=== PATIENT | female | born 1995 | race Caucasian/White ===

== ENCOUNTER 2016-05-22 20:37 | Emergency (ER) | payer MEDICAID ==
[~2016-05-22] VITALS: Ht 175.3 cm; Wt 102.0 kg
[~2016-05-22 20:37] MED LIST: ALBU17I INH; ALBU2.5I INH; FLOV110A INH; MACR100C PO; MEDR4PAK3 PO; Nebulizer machine; VENTAER INH; ZYRT10TA12 PO; [UNRECOGNIZED DRUG - SUPPLY]
[2016-05-22 20:40] VITALS: BP 161/113; PULSE 97; RESP 16; TEMP 98; O2SAT 98
[2016-05-22 22:30] VITALS: BP 168/100; PULSE 89; RESP 14; O2SAT 99
[2016-05-22] MEDS ORDERED: VENTAER INH (22:37)
[2016-05-22] MEDS ORDERED: ALBU.5I NEB (22:38)
[2016-05-22] MEDS ORDERED: MORPHINE SULFATE 4 MG/ML INJ IV PUSH ONE (23:15)
[2016-05-22] MEDS ORDERED: SODIUM CHLORID 0.9% 500 ML INJ 500 ML IV ONE (23:15)
[2016-05-22] MEDS ORDERED: SODIUM CHLORIDE 0.9% FLUSH 5 ML FLUSH IVF PRN (23:15)
[2016-05-22] MEDS ORDERED: ONDANSETRON HCL 4 MG/2 ML VIAL IV PUSH ONE (23:15)
--- NOTE | 2016-05-22 23:24 | PD ---
HPI Chief Complaint: Injury Time Seen by Provider: 22:59 Travel History International Travel<30 days: No Contact w/Intl Traveler<30days: No Traveled to known affect area: No History of Present Illness HPI The patient is a 20-year-old female who presents to the emergency department for bilateral arm pain, chest pain, and back pain. The patient states her symptoms started yesterday when she tried plugging in her [place] the outlet. The patient was using her right hand, is right-hand dominant, when she felt a "shock". The patient states she jumped back from the wall because she was scared, however, was not thrown across the room. She denied any burn harper to the right hand. Patient states earlier today she developed left arm pain that radiates to the chest and down the right arm as well as to the upper back. The pain is sharp, improved with massage at home, and possibly exacerbated by being electrocuted while plugging in a fan. The patient denies any shortness of breath, nausea, vomiting, abdominal pain, or visible romero. PFSH Past Medical History Asthma: Yes Developmental Delay: No Diminished Hearing: No GERD: Yes Hypertension: Yes Respiratory: Yes (ASTHMA) Immunizations Current: Yes Influenza Vaccination: No ?: Not LMP: 2 WKS AGO : 1 Para: 1 Past Surgical History Surgical History: No Previous Surgery Social History Alcohol Use: No Tobacco Use: No Substance Use: No Allergies-Medications (Allergen,Severity, Reaction): Coded Allergies: No Known Allergies (Verified , 05/22/16) Reported Meds & Prescriptions Reported Meds & Active Scripts Active Reported Albuterol Neb (Albuterol Sulfate) 2.5 Mg/0.5 Ml Neb 2.5 Mg NEB ONCE Note: The Albuterol Sulfate Inhalation Solution is concentrated and must be diluted. Read complete instructions carefully before using. Ventolin Hfa 18 GM Inh (Albuterol Sulfate) 90 Mcg/Act Aer 2 Puff INH Q4-6H PRN Review of Systems Except as stated in HPI: all other systems reviewed are Neg General / Constitutional: No: Fever HENT: Positive: Neck Pain, No: Lightheadedness Cardiovascular: Positive: Chest Pain or Discomfort Respiratory: No: Shortness of Breath Gastrointestinal: No: Nausea, Vomiting, Abdominal Pain Musculoskeletal: Positive: Pain Skin: No Other (denies any romero) Neurologic: No: Paresthesia, Sensory Disturbance Physical Exam Narrative GENERAL: Awake, alert, pleasant 20-year-old female who appears her stated age and is in no acute respiratory distress. SKIN: Warm and dry. No visible romero on the right hand, right upper extremity, or left upper extremity. Multiple tattoos noted. Multicolored hair. HEAD: Atraumatic. Normocephalic. EYES: No injection or drainage.. ENT: No nasal bleeding or discharge. Mucous membranes pink and moist. NECK: Trachea midline. No JVD. CARDIOVASCULAR: Regular rate and rhythm. No murmur appreciated. No tenderness to palpation of the sternal border. RESPIRATORY: No accessory muscle use. Clear to auscultation. Breath sounds equal bilaterally. MUSCULOSKELETAL: No obvious deformities. No clubbing. No cyanosis. No edema. NEUROLOGICAL: Awake and alert. No obvious cranial nerve deficits. Motor grossly within normal limits. Normal speech. PSYCHIATRIC: Appropriate mood and affect; insight and judgment normal. Data Data Last Documented VS Vital Signs Date Time Temp Pulse Resp B/P Pulse Ox O2 Delivery O2 Flow Rate FiO2 05/22/16 22:32 90 05/22/16 20:40 98.0 16 161/113 98 Room Air Orders Electrocardiogram (05/22/16 20:50) Ckmb (Isoenzyme) Profile (05/22/16 23:05) Complete Blood Count With Diff (05/22/16 23:05) Comprehensive Metabolic Panel (05/22/16 23:05) Troponin I (05/22/16 23:05) Ecg Monitoring (05/22/16 23:05) Iv Access Insert/Monitor (05/22/16 23:05) Oximetry (05/22/16 23:05) Oxygen Administration (05/22/16 23:05) Morphine Inj (Morphine Inj) (05/22/16 23:15) Sodium Chloride 0.9% Flush (Ns Flush) (05/22/16 23:15) Sodium Chlorid 0.9% 500 Ml Inj (Ns 500 M (05/22/16 23:15) Ondansetron Inj (Zofran Inj) (05/22/16 23:15) Labs Laboratory Tests Test 05/22/16 23:10 White Blood Count 6.5 TH/MM3 Red Blood Count 5.25 MIL/MM3 Hemoglobin 14.2 GM/DL Hematocrit 40.6 % Mean Corpuscular Volume 77.3 FL Mean Corpuscular Hemoglobin 27.1 PG Mean Corpuscular Hemoglobin 35.0 % Concent Red Cell Distribution Width 13.8 % Platelet Count 176 TH/MM3 Mean Platelet Volume 8.6 FL Neutrophils (%) (Auto) 48.8 % Lymphocytes (%) (Auto) 34.8 % Monocytes (%) (Auto) 9.5 % Eosinophils (%) (Auto) 6.0 % Basophils (%) (Auto) 0.9 % Neutrophils # (Auto) 3.2 TH/MM3 Lymphocytes # (Auto) 2.3 TH/MM3 Monocytes # (Auto) 0.6 TH/MM3 Eosinophils # (Auto) 0.4 TH/MM3 Basophils # (Auto) 0.1 TH/MM3 CBC Comment DIFF FINAL Differential Comment Sodium Level 139 MEQ/L Potassium Level 3.3 MEQ/L Chloride Level 103 MEQ/L Carbon Dioxide Level 27.3 MEQ/L Anion Gap 9 MEQ/L Blood Urea Nitrogen 8 MG/DL Creatinine 0.94 MG/DL Estimat Glomerular Filtration 74 ML/MIN Rate Random Glucose 78 MG/DL Calcium Level 8.6 MG/DL Total Bilirubin 0.8 MG/DL Aspartate Amino Transf 61 U/L (AST/SGOT) Alanine Aminotransferase 72 U/L (ALT/SGPT) Alkaline Phosphatase 113 U/L Total Creatine Kinase 94 U/L Troponin I 0.10 NG/ML Total Protein 7.9 GM/DL Albumin 3.9 GM/DL MDM Medical Decision Making Medical Screen Exam Complete: Yes Emergency Medical Condition: Yes Medical Record Reviewed: Yes Interpretation(s) EKG reveals normal sinus rhythm with a rate of 82. No ischemic changes or ectopy noted. Laboratory Tests Test 05/22/16 23:10 White Blood Count 6.5 TH/MM3 Red Blood Count 5.25 MIL/MM3 Hemoglobin 14.2 GM/DL Hematocrit 40.6 % Mean Corpuscular Volume 77.3 FL Mean Corpuscular Hemoglobin 27.1 PG Mean Corpuscular Hemoglobin 35.0 % Concent Red Cell Distribution Width 13.8 % Platelet Count 176 TH/MM3 Mean Platelet Volume 8.6 FL Neutrophils (%) (Auto) 48.8 % Lymphocytes (%) (Auto) 34.8 % Monocytes (%) (Auto) 9.5 % Eosinophils (%) (Auto) 6.0 % Basophils (%) (Auto) 0.9 % Neutrophils # (Auto) 3.2 TH/MM3 Lymphocytes # (Auto) 2.3 TH/MM3 Monocytes # (Auto) 0.6 TH/MM3 Eosinophils # (Auto) 0.4 TH/MM3 Basophils # (Auto) 0.1 TH/MM3 CBC Comment DIFF FINAL Differential Comment Sodium Level 139 MEQ/L Potassium Level 3.3 MEQ/L Chloride Level 103 MEQ/L Carbon Dioxide Level 27.3 MEQ/L Anion Gap 9 MEQ/L Blood Urea Nitrogen 8 MG/DL Creatinine 0.94 MG/DL Estimat Glomerular Filtration 74 ML/MIN Rate Random Glucose 78 MG/DL Calcium Level 8.6 MG/DL Total Bilirubin 0.8 MG/DL Aspartate Amino Transf 61 U/L (AST/SGOT) Alanine Aminotransferase 72 U/L (ALT/SGPT) Alkaline Phosphatase 113 U/L Total Creatine Kinase 94 U/L Troponin I 0.10 NG/ML Total Protein 7.9 GM/DL Albumin 3.9 GM/DL Differential Diagnosis Differential diagnosis includes electrocution, rhabdomyolysis, acute renal failure, neuropathy, radiculopathy, anxiety. Narrative Course IV was established, labs are drawn and sent, and the patient was placed on cardiac telemetry monitoring and continuous pulse oximetry monitoring. EKG was ordered and interpreted. CPK and BUN/creatinine were sent to lab. The patient was administered morphine, Zofran, and IV fluids for her symptoms. The patient' s EKG reveals sinus rhythm with no obvious ischemic changes or ectopy. Heart rate was within normal limits, slightly on the upper end in the 90s, but the patient was not hypoxic. However, troponin was elevated at 1.10, unsure if this is related to underlying electrocution with pericardial injury/cardial injury versus possible PE. I had a discussion with the patient regarding the need to perform imaging for possible pulmonary embolism and admission for serial cardiac enzymes and further evaluation by cardiology. However, the patient states she has a young child at home and does not want to stay in the hospital. I discussed the risk and benefits of leaving against medical support assistant, the patient is alert, oriented, and able to make a reasonable decision. The patient has signed out AGAINST MEDICAL ADVICE. The patient was administered aspirin prior to discharge. Patient is advised to return immediately if possible. Procedures Procedure Narrative AMA: The risks of leaving against medical advice without further evaluation treatment were discussed with the patient. These risks include cardiac dysfunction, cardiac dysrhythmia, possible heart attack, possible stroke or . The patient indicated understanding of these risks and appeared to have the capacity to make this decision. Diagnosis Primary Impression: Chest pain Qualified Code: R07.9 - Chest pain, unspecified type Additional Impression: Elevated troponin Disposition: 07 AGAINST MEDICAL ADVICE Condition: Stable Shaji Martines MD May 22, 2016 23:24
[2016-05-22 23:45] VITALS: BP 152/98; PULSE 95; RESP 16; O2SAT 100
[2016-05-23 00:01] LABS: AUTOMATED NEUTROPHIL # 3.2 TH/MM3 (1.8-7.7); BASOPHIL # 0.1 TH/MM3 (0-0.2); BASOPHIL % 0.9 % (0.0-2.0); EOSINOPHIL # 0.4 TH/MM3 (0-0.4); HEMATOCRIT 40.6 % (35.0-46.0); HEMO FLAGS DIFF FINAL; LYMPH % 34.8 % (9.0-44.0); LYMPHOCYTE # 2.3 TH/MM3 (1.0-4.8); MEAN CELL VOLUME 77.3 FL (80.0-100.0); MEAN CORPUSCULAR HEMOGLOBIN 27.1 PG (27.0-34.0); MONO % 9.5 % (0.0-8.0); NEUT % 48.8 % (16.0-70.0); PLATELET COUNT 176 TH/MM3 (150-450); RED BLOOD COUNT 5.25 MIL/MM3 (4.00-5.30); RED CELL DISTRIBUTION WIDTH 13.8 % (11.6-17.2); WHITE BLOOD COUNT 6.5 TH/MM3 (4.0-11.0)
[2016-05-23 00:37] LABS: ALKALINE PHOSPHATASE 113 U/L (45-117); ALT (GPT) 72 U/L (10-53); ANION GAP 9 MEQ/L (5-15); AST (GOT) 61 U/L (15-37); BICARBONATE 27.3 MEQ/L (21.0-32.0); BLOOD UREA NITROGEN 8 MG/DL (7-18); CHLORIDE 103 MEQ/L (98-107); GLOMERULAR FILTRATION RATE 74 ML/MIN (>89); POTASSIUM 3.3 MEQ/L (3.5-5.1); SODIUM (NA) 139 MEQ/L (136-145); TOTAL BILIRUBIN ADULT 0.8 MG/DL (0.2-1.0)
[2016-05-23 00:38] LABS: CREATINE KINASE 94 U/L (26-192)
[2016-05-23 00:51] VITALS: BP 158/94; PULSE 92; RESP 14; O2SAT 99
[2016-05-23] MEDS ORDERED: ASPIRIN 81 MG CHEW TAB CHEW ONE (01:00)
--- NOTE | 2016-05-23 16:53 | EKG ---
Date Performed: 05/22/2016 Time Performed: 20:58:32 PTAGE: 20 years EKG: Sinus rhythm NORMAL ECG NO PREVIOUS TRACING DOCTOR: Odell Dangelo Interpretating Date/Time 05/23/2016 16:52:42
== END 2016-05-23 01:02 | disposition left against medical advice (07) ==
LOC: NEPA 20:37
DX: R07.9 Chest pain, unspecified (principal); R74.8 Abnormal levels of other serum enzymes; I10 Essential (primary) hypertension
CPT/HCPCS: 80053; 82550; 84484; 85025; 93005; 96361; 96374; 96375; 99285; J2270; J2405; J7040

== ENCOUNTER 2016-08-06 17:24 | Emergency (ER) | payer MEDICAID ==
[~2016-08-06] VITALS: Ht 177.8 cm; Wt 105.0 kg
[~2016-08-06 17:24] MED LIST changes: +ALBU.5I NEB; -ALBU17I INH; -ALBU2.5I INH; -FLOV110A INH; -MACR100C PO; -MEDR4PAK3 PO; -Nebulizer machine; -ZYRT10TA12 PO; -[UNRECOGNIZED DRUG - SUPPLY]
[2016-08-06 17:25] VITALS: BP 173/95; PULSE 89; RESP 18; TEMP 97.9; O2SAT 99
[2016-08-06] MEDS ORDERED: SODIUM CHLOR 0.9% 1000 ML INJ 1,000 ML IV ONE (19:16)
--- NOTE | 2016-08-06 19:19 | PD ---
HPI Chief Complaint: Headache Time Seen by Provider: 19:08 Travel History International Travel<30 days: No Contact w/Intl Traveler<30days: No Traveled to known affect area: No History of Present Illness HPI This patient was examined in the presence of a female nurse. 20-year-old female with no significant past medical history presents for evaluation of a headache. Symptom onset 3 days ago. Since that has gradually worsened. Currently rates the pain as a 5 out of 10. She describes it as a generalized pressure which is constant, no alleviating factors. She denies any associated symptoms such as blurred vision, nausea or vomiting, dizziness, lightheadedness, weakness in the extremities. She reports that she occasionally gets headaches primarily in the frontal region but not on a regular basis. She took some aspirin at home but the headache persists which prompted evaluation. No history of migraines. Last menstrual period 1-2 weeks ago. No other complaints at this time. PFSH Past Medical History Asthma: Yes Developmental Delay: No Diminished Hearing: No GERD: Yes Hypertension: Yes Respiratory: Yes (ASTHMA) Immunizations Current: Yes Tetanus Vaccination: < 5 Years Influenza Vaccination: No ?: Not LMP: 08/02/16 : 1 Para: 1 Past Surgical History Surgical History: No Previous Surgery Social History Alcohol Use: No Tobacco Use: No Substance Use: No Allergies-Medications (Allergen,Severity, Reaction): Coded Allergies: No Known Allergies (Verified , 08/06/16) Reported Meds & Prescriptions Reported Meds & Active Scripts Active Reported [Blood Pressure] Albuterol Neb (Albuterol Sulfate) 2.5 Mg/0.5 Ml Neb 2.5 Mg NEB ONCE Note: The Albuterol Sulfate Inhalation Solution is concentrated and must be diluted. Read complete instructions carefully before using. Ventolin Hfa 18 GM Inh (Albuterol Sulfate) 90 Mcg/Act Aer 2 Puff INH Q4-6H PRN Review of Systems Except as stated in HPI: all other systems reviewed are Neg Physical Exam Narrative GENERAL: Well-nourished female in no acute distress SKIN: Warm and dry. HEAD: Atraumatic. Normocephalic. EYES: Pupils equal and round. No scleral icterus. No injection or drainage. ENT: No nasal bleeding or discharge. Mucous membranes pink and moist. NECK: Trachea midline. No JVD. CARDIOVASCULAR: Regular rate and rhythm. No murmur appreciated. RESPIRATORY: No accessory muscle use. Clear to auscultation. Breath sounds equal bilaterally. GASTROINTESTINAL: Abdomen soft, non-tender, nondistended. Hepatic and splenic margins not palpable. MUSCULOSKELETAL: No obvious deformities. No clubbing. No cyanosis. No edema. NEUROLOGICAL: Awake and alert. No obvious cranial nerve deficits. Motor grossly within normal limits. Normal speech. PSYCHIATRIC: Appropriate mood and affect; insight and judgment normal. Data Data Last Documented VS Vital Signs Date Time Temp Pulse Resp B/P Pulse Ox O2 Delivery O2 Flow Rate FiO2 08/06/16 19:55 87 18 165/89 100 Room Air 08/06/16 19:24 98.1 Orders Iv Access Insert/Monitor (08/06/16 19:16) Ketorolac Inj (Toradol Inj) (08/06/16 19:30) Diphenhydramine Inj (Benadryl Inj) (08/06/16 19:30) Metoclopramide Inj (Reglan Inj) (08/06/16 19:30) Sodium Chlor 0.9% 1000 Ml Inj (Ns 1000 M (08/06/16 19:16) MDM Medical Decision Making Medical Screen Exam Complete: Yes Emergency Medical Condition: Yes Medical Record Reviewed: Yes Differential Diagnosis Migraine, tension headache, cluster headache, mass, pseudotumor cerebri, temporal arteritis, sinusitis, occipital neuralgia, subarachnoid hemorrhage, hypertensive emergency Narrative Course 20-year-old female with gradual onset 3 day history of headache. Currently rates it as a 5 out of 10. She has no additional symptoms. She has a grossly nonfocal neurologic examination and she appears well. I suspect a benign headache. She will be treated symptomatically. Her blood pressure was elevated and she does endorse a history of hypertension, she is currently on 1 hypertensive medication that she does not remember the name of. She is encouraged to keep a journal of her blood pressure readings and to follow up with a primary care physician for further management and evaluation of blood pressure journal readings. She is agreeable with this plan. After the administration of 1 L IV fluids, IV Benadryl, IV Reglan and Toradol she was reexamined. The patient reports significant improvement, near resolution of her headache. She is stable for discharge. Diagnosis Primary Impression: Headache Qualified Code: R51 - Acute nonintractable headache, unspecified headache type Additional Instructions: Stay well-hydrated and well-nourished. As discussed, monitor your blood pressure at a regular basis and keep a journal of the readings. Follow-up with primary care physician to discuss. Return for any emergent medical conditions Med/Other Pt SpecificInfo: No Change to Meds Disposition: 01 DISCHARGE HOME Condition: Stable Saeid Vivar August 06, 2016 19:18
[2016-08-06 19:24] VITALS: BP 165/104; PULSE 98; RESP 18; TEMP 98.1; O2SAT 97
[2016-08-06] MEDS ORDERED: BLOOD PRESSURE (19:24)
[2016-08-06] MEDS ORDERED: METOCLOPRAMIDE HCL 10 MG/2 ML VIAL IVP ONE (19:30)
[2016-08-06] MEDS ORDERED: diphenhydrAMINE HCL 50 MG/ML VIAL IVP ONE (19:30)
[2016-08-06] MEDS ORDERED: KETOROLAC TROMETHAMINE 30 MG/ML (IVP) VIAL IVP ONE (19:30)
[2016-08-06 19:55] VITALS: BP 165/89; PULSE 87; RESP 18; O2SAT 100
[2016-08-06 20:18] VITALS: BP 168/93; PULSE 83; RESP 18; TEMP 98.4; O2SAT 100
== END 2016-08-06 20:42 | disposition home or self-care (01) ==
LOC: NEPD 17:24
DX: R51 Headache (principal); I10 Essential (primary) hypertension
CPT/HCPCS: 96374; 96375; 99283; J1200; J1885; J2765; J7030

== ENCOUNTER 2016-09-16 04:51 | Emergency (ER) | payer MEDICAID ==
[~2016-09-16] VITALS: Ht 170.2 cm; Wt 77.0 kg
[~2016-09-16 04:51] MED LIST changes: +BLOOD PRESSURE
[2016-09-16 04:54] VITALS: BP 180/104; PULSE 98; RESP 18; TEMP 98.3; O2SAT 97
[2016-09-16 06:21] LABS: BACTERIA, URINE OCC /hpf; BLOOD, URINE LARGE (NEG); COMMENT (UR) CULTURE INDICATED; CULTURE IF INDICATED CULTURE INDICATED; GLUCOSE,URINE NEG (NEG); KETONE, URINE NEG (NEG); MUCUS URINE FEW /lpf (OCC); NITRITE,URINE NEG (NEG); PH, URINE 6.5 (5.0-8.5); RENAL EPITHELIAL CELLS <1 /hpf; SQUAMOUS EPITHELIAL CELL URINE 5 /hpf (0-5); TRANSITIONAL EPI CELLS, URINE <1 /hpf; URINE COLOR YELLOW (YELLW/STRAW)
--- NOTE | 2016-09-16 06:31 | PD ---
HPI Chief Complaint: Flank/Kidney Pain Time Seen by Provider: 06:08 Travel History International Travel<30 days: No Contact w/Intl Traveler<30days: No Traveled to known affect area: No History of Present Illness HPI The patient is a 21 year old female who presents to the [facility] emergency department with a history of flank pain that began yesterday afternoon. She reports that yesterday morning she began to have urinary frequency and urgency. She denies having any dysuria. She reports that yesterday afternoon she noticed some blood in her urine. She denies ever having a history of kidney stones or pyelonephritis. The patient denies any recent fevers, cough, congestion, neck pain, chest pain, shortness of breath, abdominal pain, vomiting, diarrhea, or neurologic symptoms. [facility] Past Medical History Narrative Medical The patient's past medical history is significant for mild asthma, acid reflux, hypertension. Asthma: Yes Developmental Delay: No Diminished Hearing: No GERD: Yes Hypertension: Yes Respiratory: Yes (ASTHMA) Immunizations Current: Yes Tetanus Vaccination: < 5 Years Influenza Vaccination: No ?: Not : 1 Para: 1 Past Surgical History Narrative Surgical The patient's past surgical history is reportedly none. Social History Alcohol Use: No Tobacco Use: No Substance Use: No Allergies-Medications (Allergen,Severity, Reaction): Coded Allergies: No Known Allergies (Verified , 08/06/16) Reported Meds & Prescriptions Reported Meds & Active Scripts Active Keflex (Cephalexin) 500 Mg Cap 500 Mg PO Q8H Reported Albuterol Neb (Albuterol Sulfate) 2.5 Mg/0.5 Ml Neb 2.5 Mg NEB ONCE Note: The Albuterol Sulfate Inhalation Solution is concentrated and must be diluted. Read complete instructions carefully before using. Ventolin Hfa 18 GM Inh (Albuterol Sulfate) 90 Mcg/Act Aer 2 Puff INH Q4-6H PRN Review of Systems Except as stated in HPI: all other systems reviewed are Neg General / Constitutional: No: Fever Eyes: No: Visual changes HENT: No: Headaches Cardiovascular: No: Chest Pain or Discomfort Respiratory: No: Shortness of Breath Gastrointestinal: No: Nausea, Vomiting, Abdominal Pain, Changes in Bowel Habits , Indigestion, Loss of Appetite Genitourinary: Positive: Urgency, Frequency, Hematuria, Flank Pain (right flank pain), No: Dysuria Musculoskeletal: No: Pain Skin: No Rash Neurologic: No: Weakness Psychiatric: No: Depression Endocrine: No: Polydipsia Hematologic/Lymphatic: No: Easy Bruising Physical Exam Narrative General: The patient is a well-developed well-nourished female in no acute distress. Head and Neck exam: Head is normocephalic atraumatic. Eyes: EOMI, pupils are equal round and reactive to light. Nose: Midline septum with pink mucous membranes Mouth: Dentition unremarkable. Moist mucus membranes. Posterior oropharynx is not erythematous. No tonsillar hypertrophy. Uvula midline. Airway patent. Neck: No palpable lymphadenopathy. No nuchal rigidity. No thyromegaly. Cardiovascular: Regular rate and rhythm without murmurs, gallops, or rubs. No pulse deficit to the extremities. Lungs: Clear to auscultation bilaterally. No wheezes, rhonchi, or rales. Abdomen: Soft, without tenderness to palpation in all 4 quadrants of the abdomen. No guarding, rebound, or rigidity. Normal bowel sounds are audible. No tenderness on palpation of McBurney's point. Extremities: No clubbing, cyanosis, or edema. 2+ pulses in all 4 extremities. Back: No spinous process tenderness to palpation. Right-sided CVA tenderness on palpation. Neurologic Exam: Grossly nonfocal. Skin Exam: No rash noted. Intact skin that is warm and dry. Data Data Last Documented VS Vital Signs Date Time Temp Pulse Resp B/P Pulse Ox O2 Delivery O2 Flow Rate FiO2 09/16/16 04:54 98.3 98 18 180/104 97 Orders Urinalysis - C+S If Indicated (09/16/16 05:59) Complete Blood Count With Diff (09/16/16 06:08) Basic Metabolic Panel (Bmp) (09/16/16 06:08) Iv Access Insert/Monitor (09/16/16 06:08) Ecg Monitoring (09/16/16 06:08) Oximetry (09/16/16 06:08) Ed Urine Pregnancytest Poc (09/16/16 06:08) Urine Culture (09/16/16 05:50) Ct Abd/Pel W/O Iv Contrast (09/16/16 06:58) Sodium Chlor 0.9% 1000 Ml Inj (Ns 1000 M (09/16/16 07:00) Ondansetron Inj (Zofran Inj) (09/16/16 07:00) Ketorolac Inj (Toradol Inj) (09/16/16 07:00) Ceftriaxone Inj (Rocephin Inj) (09/16/16 07:00) Labs Laboratory Tests Test 09/16/16 09/16/16 05:50 06:29 Urine Color YELLOW Urine Turbidity HAZY Urine pH 6.5 Urine Specific Bynum 1.016 Urine Protein 100 mg/dL Urine Glucose (UA) NEG mg/dL Urine Ketones NEG mg/dL Urine Occult Blood LARGE Urine Nitrite NEG Urine Bilirubin NEG Urine Urobilinogen LESS THAN 2.0 MG/DL Urine Leukocyte Esterase LARGE Urine RBC 38 /hpf Urine WBC /hpf Urine WBC Clumps MANY Urine Squamous Epithelial 5 /hpf Cells Urine Transitional Epithelial <1 /hpf Cells Urine Renal Epithelial Cells <1 /hpf Urine Bacteria OCC /hpf Urine Mucus FEW /lpf Microscopic Urinalysis Comment CULTURE INDICATED White Blood Count 12.0 TH/MM3 Red Blood Count 5.21 MIL/MM3 Hemoglobin 12.9 GM/DL Hematocrit 40.0 % Mean Corpuscular Volume 76.8 FL Mean Corpuscular Hemoglobin 24.7 PG Mean Corpuscular Hemoglobin 32.2 % Concent Red Cell Distribution Width 14.0 % Platelet Count 255 TH/MM3 Mean Platelet Volume 8.4 FL Neutrophils (%) (Auto) 64.9 % Lymphocytes (%) (Auto) 25.4 % Monocytes (%) (Auto) 6.9 % Eosinophils (%) (Auto) 2.3 % Basophils (%) (Auto) 0.5 % Neutrophils # (Auto) 7.8 TH/MM3 Lymphocytes # (Auto) 3.0 TH/MM3 Monocytes # (Auto) 0.8 TH/MM3 Eosinophils # (Auto) 0.3 TH/MM3 Basophils # (Auto) 0.1 TH/MM3 CBC Comment DIFF FINAL Differential Comment Sodium Level 141 MEQ/L Potassium Level 3.1 MEQ/L Chloride Level 104 MEQ/L Carbon Dioxide Level 28.2 MEQ/L Anion Gap 9 MEQ/L Blood Urea Nitrogen 6 MG/DL Creatinine 0.75 MG/DL Estimat Glomerular Filtration 96 ML/MIN Rate Random Glucose 97 MG/DL Calcium Level 9.3 MG/DL [facility] Medical Decision Making Medical Screen Exam Complete: Yes Emergency Medical Condition: Yes Medical Record Reviewed: Yes Differential Diagnosis Pyelonephritis, versus kidney stone, versus musculoskeletal strain, versus interstitial cystitis, versus hemorrhagic cystitis Narrative Course During the course of the patients emergency department visit, the patients history, examination, and differential diagnosis were reviewed with the patient. The patient had IV access obtained and blood work sent for analysis. The patient was placed on a cardiac technologist with oximetry and blood pressure monitoring. The patient was initially provided normal saline 1 L IV fluid bolus, Toradol 15 mg IV, Zofran 4 mg IV. The patients laboratory studies were reviewed and remarkable for a white count of 12, hemoglobin 12.9, platelets 255 with a normal differential, basic metabolic profile is remarkable for potassium of 3.1 which will be supplemented orally. Urinalysis shows large leukocyte esterase 38 rbc's innumerable wbc's many clumps occasional bacteria, culture indicated. The patient was given Rocephin [address] scan of the abdomen and pelvis is pending at the conclusion of my shift to evaluate for possible underlying kidney stone. The patient's case will be checked out to the oncoming emergency room physician to disposition based on the conclusion of the workup. Diagnosis Primary Impression: Right flank pain Additional Impression: Urinary tract infection Qualified Code: N39.0 - Urinary tract infection with hematuria, site unspecified Scripts Cephalexin (Keflex)500 Mg Vfr149 Mg PO Q8H #30 CAP Ref 0 Prov:Kiya Muniz MD 09/16/16 Kiya Muniz MD Sep 16, 2016 06:31
[2016-09-16 06:46] LABS: AUTOMATED NEUTROPHIL # 7.8 TH/MM3 (1.8-7.7); BASOPHIL # 0.1 TH/MM3 (0-0.2); BASOPHIL % 0.5 % (0.0-2.0); EOSINOPHIL # 0.3 TH/MM3 (0-0.4); EOSINOPHIL % 2.3 % (0.0-4.0); HEMO FLAGS DIFF FINAL; LYMPH % 25.4 % (9.0-44.0); MEAN CELL VOLUME 76.8 FL (80.0-100.0); MEAN CORPUSCULAR HEMOGLOBIN 24.7 PG (27.0-34.0); MEAN CORPUSCULAR HGB CONC 32.2 % (32.0-36.0); MONO % 6.9 % (0.0-8.0); NEUT % 64.9 % (16.0-70.0); PLATELET COUNT 255 TH/MM3 (150-450); RED BLOOD COUNT 5.21 MIL/MM3 (4.00-5.30)
[2016-09-16 06:59] LABS: BICARBONATE 28.2 MEQ/L (21.0-32.0); POTASSIUM 3.1 MEQ/L (3.5-5.1)
[2016-09-16] MEDS ORDERED: SODIUM CHLOR 0.9% 1000 ML INJ 1,000 ML IV ONE (07:00)
[2016-09-16] MEDS ORDERED: ONDANSETRON HCL 4 MG/2 ML VIAL IV ONE (07:00)
[2016-09-16] MEDS ORDERED: cefTRIAXone INJ 1,000 MG in SODIUM CHLORIDE 0.9% INJ 100 ML IV ONE (07:00)
[2016-09-16] MEDS ORDERED: KETOROLAC TROMETHAMINE 30 MG/ML (IVP) VIAL IV PUSH ONE (07:00)
[2016-09-16] MEDS ORDERED: CEPH-460 PO (07:09)
[2016-09-16] MEDS ORDERED: POTASSIUM CHLORIDE 20 MEQ CONTROLLED RELEASE TAB PO ONE (07:45)
[2016-09-16 07:46] VITALS: RESP 18
--- NOTE | 2016-09-16 07:54 | PD ---
Data Data Last Documented VS Vital Signs Date Time Temp Pulse Resp B/P Pulse Ox O2 Delivery O2 Flow Rate FiO2 09/16/16 07:46 18 09/16/16 04:54 98.3 98 180/104 97 Orders Urinalysis - C+S If Indicated (09/16/16 05:59) Complete Blood Count With Diff (09/16/16 06:08) Basic Metabolic Panel (Bmp) (09/16/16 06:08) Iv Access Insert/Monitor (09/16/16 06:08) Ecg Monitoring (09/16/16 06:08) Oximetry (09/16/16 06:08) Ed Urine Pregnancytest Poc (09/16/16 06:08) Urine Culture (09/16/16 05:50) Ct Abd/Pel W/O Iv Contrast (09/16/16 06:58) Sodium Chlor 0.9% 1000 Ml Inj (Ns 1000 M (09/16/16 07:00) Ondansetron Inj (Zofran Inj) (09/16/16 07:00) Ketorolac Inj (Toradol Inj) (09/16/16 07:00) Ceftriaxone Inj (Rocephin Inj) (09/16/16 07:00) Potassium Chloride (Kcl) (09/16/16 07:45) Labs Laboratory Tests Test 09/16/16 09/16/16 05:50 06:29 Urine Color YELLOW Urine Turbidity HAZY Urine pH 6.5 Urine Specific [place] 1.016 Urine Protein 100 mg/dL Urine Glucose (UA) NEG mg/dL Urine Ketones NEG mg/dL Urine Occult Blood LARGE Urine Nitrite NEG Urine Bilirubin NEG Urine Urobilinogen LESS THAN 2.0 MG/DL Urine Leukocyte Esterase LARGE Urine RBC 38 /hpf Urine WBC /hpf Urine WBC Clumps MANY Urine Squamous Epithelial 5 /hpf Cells Urine Transitional Epithelial <1 /hpf Cells Urine Renal Epithelial Cells <1 /hpf Urine Bacteria OCC /hpf Urine Mucus FEW /lpf Microscopic Urinalysis Comment CULTURE INDICATED White Blood Count 12.0 TH/MM3 Red Blood Count 5.21 MIL/MM3 Hemoglobin 12.9 GM/DL Hematocrit 40.0 % Mean Corpuscular Volume 76.8 FL Mean Corpuscular Hemoglobin 24.7 PG Mean Corpuscular Hemoglobin 32.2 % Concent Red Cell Distribution Width 14.0 % Platelet Count 255 TH/MM3 Mean Platelet Volume 8.4 FL Neutrophils (%) (Auto) 64.9 % Lymphocytes (%) (Auto) 25.4 % Monocytes (%) (Auto) 6.9 % Eosinophils (%) (Auto) 2.3 % Basophils (%) (Auto) 0.5 % Neutrophils # (Auto) 7.8 TH/MM3 Lymphocytes # (Auto) 3.0 TH/MM3 Monocytes # (Auto) 0.8 TH/MM3 Eosinophils # (Auto) 0.3 TH/MM3 Basophils # (Auto) 0.1 TH/MM3 CBC Comment DIFF FINAL Differential Comment Sodium Level 141 MEQ/L Potassium Level 3.1 MEQ/L Chloride Level 104 MEQ/L Carbon Dioxide Level 28.2 MEQ/L Anion Gap 9 MEQ/L Blood Urea Nitrogen 6 MG/DL Creatinine 0.75 MG/DL Estimat Glomerular Filtration 96 ML/MIN Rate Random Glucose 97 MG/DL Calcium Level 9.3 MG/DL MDM Supervised Visit with YOLIS: No Narrative Course Patient care assumed from Dr. Muniz at 0700, is a 21-year-old female who presents with symptoms virgilio to pyelonephritis versus obstructing kidney stone, CT scan is pending at this time. Patient appears comfortable. I was asked follow-up to CAT scan and disposition the patient appropriately: Last 24 hours Impressions Abdomen/Pelvis CT 09/16/16 0658 Signed Impressions: Service Date/Time: Wednesday, September 16, 2016 08:14 - CONCLUSION: Mild prominence to the collecting system on the right with very minimal perinephric stranding. A stone is not identified. Kain Kamara MD FACR CAT scan results could be secondary to a passed kidney stone, certainly the patient is comfortable currently, discussed symptomatic management need for follow-up the primary care physician she was also given a referral to urologist , discussed return to ED criteria. She stable for discharge at this time. Diagnosis Primary Impression: Right flank pain Additional Impression: Urinary tract infection Qualified Code: N39.0 - Urinary tract infection with hematuria, site unspecified Referrals: Mik Torres MD Scripts Hydrocodone-Acetaminophen ([place])5-325 mg Tab1 Tab PO Q6H PRN (PAIN) #12 TAB Ref 0 Prov:Hesham Ervin MD 09/16/16 Cephalexin (Keflex)500 Mg [id number] Mg PO Q8H #30 CAP Ref 0 Prov:Kiya Muniz MD 09/16/16 Disposition: 01 DISCHARGE HOME Condition: Stable Hesham Ervin MD Sep 16, 2016 07:54
--- NOTE | 2016-09-16 08:59 | RADRPT ---
EXAM DATE/TIME: 09/16/2016 08:14 [facility] COMPARISON: No previous studies available for comparison. INDICATIONS : Right Flank pain and urinating frequency since yesterday. ORAL CONTRAST: No oral contrast ingested. RADIATION DOSE: 30.11 CTDIvol (mGy) MEDICAL HISTORY : Hypertension. Alzheimer's. Asthma SURGICAL HISTORY : None. ENCOUNTER: Initial ACUITY: 1 day PAIN SCALE: 2/10 LOCATION: Right flank radiating to posterior. TECHNIQUE: Volumetric scanning of the abdomen and pelvis was performed. Using automated exposure control and ad justment of the mA and/or kV according to patient size, radiation dose was kept as low as reasonably achievable to obtain optimal diagnostic quality images. FINDINGS: The lung bases are clear. The liver, spleen, pancreas and adrenals are unremarkable. Radiopaque mat erial is present in the stomach. Left Kidney: There is no evidence for calcification. Right Kidney: The right kidney is slightly larger than the left. There is very mild prominence to the left ureter without obstructing stone. This could represent pyelonephritis in the appropriate clinical circumstance. The region of the cecum and terminal ileum are unremarkable. Small cystic areas are seen in both adnexal regions, nonspecific in a 21 year old. Mild degenerative changes are seen in both SI joints. CONCLUSION: Mild prominence to the collecting system on the right with very minimal perinephric stranding. A stone is not identified. Kain Kamara MD FACR on September 16, 2016 at 8:28 Board Certified Radiologist. This report was verified electronically.
[2016-09-16] MEDS ORDERED: NORC5TAB PO (09:15)
== END 2016-09-16 10:25 | disposition home or self-care (01) ==
LOC: NEPE 04:51
DX: R10.9 Unspecified abdominal pain (principal); R31.9 Hematuria, unspecified; N39.0 Urinary tract infection, site not specified; J45.909 Unspecified asthma, uncomplicated; K21.9 Gastro-esophageal reflux disease without esophagitis; I10 Essential (primary) hypertension; B96.20 Unspecified Escherichia coli [E. coli] as the cause of diseases classified elsewhere
CPT/HCPCS: 74176; 80048; 81001; 84703; 85025; 87077; 87086; 87186; 96361; 96365; 96375; 99285; J0696; J1885; J2405; J7030